=== PATIENT | male | born 1970 | race Hispanic/Latino ===

== ENCOUNTER 2020-05-09 08:57 | Outpatient (RCR) | payer OTHER | END 2020-05-11 | LOC: PT 08:57 | PROVIDERS: ATTEND Specialist | DX: M17.0 Bilateral primary osteoarthritis of knee (principal); M62.81 Muscle weakness (generalized); M25.561 Pain in right knee; M25.461 Effusion, right knee; R26.9 Unspecified abnormalities of gait and mobility; M54.16 Radiculopathy, lumbar region ==

== ENCOUNTER 2020-05-16 09:00 | Outpatient (RCR) | payer OTHER | END 2020-06-08 | LOC: PT 09:00 | PROVIDERS: ATTEND Specialist | DX: M17.0 Bilateral primary osteoarthritis of knee (principal); M62.81 Muscle weakness (generalized); M25.561 Pain in right knee; M25.461 Effusion, right knee; R26.9 Unspecified abnormalities of gait and mobility ==